=== PATIENT | male | born 1955 | race Caucasian/White ===

== ENCOUNTER → 2019-02-19 | Outpatient (CLI) | payer BC | LOC: ZCOL.LAB 16:43 → COL.LAB 16:43 | DX: M25.472 Effusion, left ankle (principal) ==

== ENCOUNTER → 2019-08-01 | Outpatient (CLI) | payer BC | LOC: COL.RAD 14:35 | DX: S82.892P Other fracture of left lower leg, subsequent encounter for closed fracture with malunion (principal); Z98.1 Arthrodesis status ==

== ENCOUNTER 2019-09-02 13:15 | Outpatient (RCR) | payer BC | END 2019-11-11 | disposition home or self-care (01) | LOC: MKS.ESL.PT | DX: Z98.1 Arthrodesis status (principal) ==